=== PATIENT | male | born 1980 | race Caucasian/White ===

== ENCOUNTER 2023-02-26 19:32 | Emergency (ER) | payer OTHER ==
[2023-02-26] VITALS (11 sets, daily range): BP systolic 102–136; BP diastolic 65–99
[~2023-02-26] VITALS: Ht 193 cm; Wt 127.0 kg
[2023-02-26 20:03] LABS: BASO% 0.3 % (0-3); EOS% 0.4 % (0-8); HEMATOCRIT 47.2 % (39.0-50.0); HEMOGLOBIN 15.6 g/dl (14.0-18.0); LYMPH% 33.5 % (15-41); MEAN CELL VOLUME 87.6 fL CALC (80.0-100.0); MEAN CORPUSCULAR HGB 28.9 pG CALC (26.0-32.0); MEAN CORPUSCULAR HGB CONC 33.1 g/dL CAL (32.0-36.0); MONO% 7.1 % (2-13); NEUT# 4.08 thou/uL (1.82-7.42); NEUT% 58.7 % (42-76); RED BLOOD COUNT 5.39 mill/uL (4.70-6.10); RED CELL DISTRI WIDTH 12.4 % (11.5-15.5)
[2023-02-26 20:17] LABS: ALBUMIN 4.7 g/dL (3.2-5.0); ALKALINE PHOSPHATASE 80 u/l (38-126); ANION GAP 17 (6-22 (CALC)); BILIRUBIN, TOTAL 1.1 mg/dL (0.2-1.3); BUN 10 mg/dL (9-20); BUN/CREATININE RATIO 11 (12-20 (CALC)); CARBON DIOXIDE 22 mmol/l (22-30); CHLORIDE 103 mmol/l (95-108); GFR FOR AFR.AMER. > 60 ML/MIN (>=60 (CALC)); GFR OTHER RACES > 60 ML/MIN (>=60 (CALC)); LIPASE 222 u/l (23-300); POTASSIUM 4.2 mmol/l (3.5-5.1); SGOT/AST 44 u/l (17-59); SODIUM 137 mmol/l (137-146); TOTAL PROTEIN 7.9 g/dL (6.3-8.2)
[2023-02-26 21:07] LABS: URINE BILIRUBIN - DIPSTICK NEGATIVE (NEGATIVE); URINE BLOOD DIPSTICK NEGATIVE (NEGATIVE); URINE COLOR YELLOW; URINE GLUCOSE - DIPSTICK NEGATIVE (NEGATIVE); URINE KETONE NEGATIVE (NEGATIVE); URINE LEUK ESTERASE NEGATIVE (NEGATIVE); URINE PROTEIN - DIPSTICK NEGATIVE (NEG-TRACE); URINE SPECIFIC GRAVITY <=1.005; URINE UROBILINOGEN - DIPSTICK 0.2 E.U./dL (0.2)
[2023-02-26 21:08] LABS: URINE NITRITE - DIPSTICK NEGATIVE (Negative)
[2023-02-26] MEDS ORDERED: PROMETHAZINE HY25 M1 PO (21:50)
== END 2023-02-26 22:21 | disposition home or self-care (01) | DRG 392 ==
LOC: ED 19:32
PROVIDERS: Family Medicine
DX: A08.4 Viral intestinal infection, unspecified (principal)